=== PATIENT | male | born 1995 | race Two or more races ===

== ENCOUNTER 2017-07-17 01:36 | Emergency (ER) | payer MEDICAID, OTHER ==
[~2017-07-17] VITALS: Ht 172.7 cm; Wt 72.6 kg
[2017-07-17 02:57] LABS: Urine RBC None Seen /hpf (0 - 3)
[2017-07-17 03:03] LABS: Basophils # (auto) 0 uL; Basophils % (auto) 0.3 % (0.0-2.0); Eosinophils # (auto) 0.1 uL; Eosinophils % (auto) 0.5 % (0.0-7.0); Hematocrit 44.5 % (41.0-53.0); Hemoglobin 15.5 g/dL (13.5-17.5); Lymphocytes # (auto) 1.6 uL; Lymphocytes % (auto) 12.3 % (10.0-50.0); Mean Corpuscular Hemoglobin 31.7 pg (28.0-32.0); Mean Corpuscular Hgb Conc. 34.8 g/dL (32.0-36.0); Mean Platelet Volume 7.7 fL (6.9-10.8); Monocytes # (auto) 0.8 uL; Monocytes % (auto) 6.3 % (0.0-12.0); Neutrophils # (auto) 10.3 uL; Neutrophils % (auto) 80.6 % (37.0-80.0); Nucleated Red Blood Cells % 0.1 %; Platelet Count (auto) 175 10^3/uL (140-450); Red Cell Distribution Width 12.4 % (11.8-14.3); White Blood Cell 12.8 10^3/uL (4.4-10.8)
[2017-07-17 03:16] LABS: Urine Bilirubin Negative (Negative); Urine Blood Negative /uL (Negative); Urine Color Yellow (Yellow); Urine Glucose Normal (Normal); Urine Ketone 1+ (Negative); Urine Mucus FEW (None Seen); Urine Nitrite Negative (Negative); Urine pH 5.5 (5.0-8.0)
[2017-07-17 03:24] LABS: Albumin 4.1 g/dL (3.4-5.0); Calcium 8.8 mg/dL (8.5-10.1); Potassium 3.7 mmol/L (3.5-5.1)
[2017-07-17 03:26] LABS: BUN/Creatinine Ratio 10.1
[2017-07-17 03:29] LABS: Bilirubin, Total 1.4 mg/dL (0.2-1.0); Total Protein 7.7 g/dL (6.4-8.2)
[2017-07-17 07:29] VITALS: BP 136/79
== END 2017-07-17 07:42 | disposition home or self-care (01) ==
LOC: ER 01:39
DX: M54.5 Low back pain (principal); R11.0 Nausea; Z79.899 Other long term (current) drug therapy; X50.3XXA Overexertion from repetitive movements, initial encounter; Y93.89 Activity, other specified; Y92.89 Other specified places as the place of occurrence of the external cause; Y99.8 Other external cause status
CPT/HCPCS: 36415; 74176; 80053; 80307; 81001; 85025

== ENCOUNTER 2017-12-24 08:51 | Emergency (ER) | payer MEDICAID ==
[~2017-12-24] VITALS: Ht 172.7 cm; Wt 74.8 kg
[2017-12-24] MEDS ORDERED: KETOROLAC TROMETH 60MG/2ML VIAL IM ONE (09:30)
[2017-12-24] MEDS ORDERED: ONDANSETRON ODT 4 MG TAB PO ONE (09:30)
[2017-12-24 09:41] LABS: Basophils # (auto) 0.1 uL; Basophils % (auto) 0.5 % (0.0-2.0); Eosinophils # (auto) 0 uL; Eosinophils % (auto) 0.2 % (0.0-7.0); Lymphocytes # (auto) 1.2 uL; Lymphocytes % (auto) 10.6 % (10.0-50.0); Mean Corpuscular Hemoglobin 32.1 pg (28.0-32.0); Mean Corpuscular Hgb Conc. 34.7 g/dL (32.0-36.0); Mean Corpuscular Volume 92.3 fL (80.0-100.0); Monocytes # (auto) 0.5 uL; Monocytes % (auto) 4.6 % (0.0-12.0); Neutrophils # (auto) 9.9 uL; Neutrophils % (auto) 84.1 % (37.0-80.0); Nucleated Red Blood Cells % 0.1 %; Platelet Count (auto) 206 10^3/uL (140-450); Red Blood Cells 5.31 10^6/uL (4.5-5.90); Red Cell Distribution Width 13.4 % (11.8-14.3); White Blood Cell 11.8 10^3/uL (4.4-10.8)
[2017-12-24 09:55] LABS: Albumin 4.3 g/dL (3.4-5.0); BUN/Creatinine Ratio 11.4; Calcium 9.2 mg/dL (8.5-10.1)
[2017-12-24 09:59] LABS: Bilirubin, Total 1.9 mg/dL (0.2-1.0); Total Protein 8.4 g/dL (6.4-8.2)
[2017-12-24 12:08] VITALS: BP 146/76
== END 2017-12-24 12:09 | disposition home or self-care (01) ==
LOC: ER 08:55
DX: K29.00 Acute gastritis without bleeding (principal); M54.5 Low back pain
CPT/HCPCS: 36415; 74176; 80053; 85025; 96372; 99285; J1885; Q0162